=== PATIENT | male | born 1945 | race Caucasian/White ===

== ENCOUNTER → 2018-11-08 | Outpatient (CLI) | payer MEDICARE, OTHER ==
[2016-04-19 11:14] VITALS: BMI 30.6
[~2018-11-08] MED LIST: ASPI-757 PO; CEPH500T7 PO; LEV112 PO; LEVO75TA73 PO; OXYC-865 PO; TAMS0.4C25 PO
--- NOTE | 2018-11-08 10:56 | EKG ---
FACILITY: [facility] - [place] PATIENT NAME: JAVI LA : [id number] MR: [id number] V: [id number] EXAM DATE: ORDERING PHYSICIAN: LAI CASEY TECHNOLOGIST: IAN Test Reason : PRE OP CLEARANCE Blood Pressure : / mmHG Vent. Rate : 069 BPM Atrial Rate : 069 BPM P-R Int : 198 ms QRS Dur : 086 ms QT Int : 398 ms P-R-T Axes : 028 068 034 degrees QTc Int : 426 ms Sinus rhythm Nonspecific ST findings anteriorly Similar to EKG from 06/02/2012 Confirmed by LESTER BENJAMIN ([id number]) on 11/08/2018 2:49:13 PM Referred By: CARMELA Confirmed By:LESTER BENJAMIN
== END ==
LOC: CARD 09:24
PROVIDERS: ATTEND Surgery
DX: Z02.9 Encounter for administrative examinations, unspecified (principal)

== ENCOUNTER 2018-11-10 02:03 | Day surgery (SDC) | payer MEDICARE, OTHER ==
[2016-04-19 11:14] VITALS: Ht 177.8 cm; Wt 99.3 kg
[~2018-11-10] VITALS: Ht 177.8 cm; Wt 99.3 kg
[2018-11-10 09:17] VITALS: BP 144/93
[2018-11-10] MEDS ORDERED: LIDOCAINE 2% IV 100 MG/5ML SYR ONE (09:18)
[2018-11-10] MEDS ORDERED: NORMOSOL R SOLN(*) 1000 ML BAG 1,000 ML IV PRN (09:30)
[2018-11-10] MEDS ORDERED: FAMOTIDINE 20 MG TAB PO ONE (09:30)
[2018-11-10] MEDS ORDERED: LIDOCAINE/SOD BICARB 8.4% SYR ID ONE (09:30)
[2018-11-10] MEDS ORDERED: fentaNYL CITR 100 MCG/2 ML AMP ONE (09:54)
[2018-11-10] MEDS ORDERED: PROPOFOL EMUL(*) 10MG/ML 20 ML 20 ML ONE (09:55)
[2018-11-10] MEDS ORDERED: ROPIVACAINE 0.5% 20 ML VIAL ONE (10:27)
[2018-11-10] MEDS ORDERED: DEXAMETHASONE SOD 4 MG/ML VIAL ONE (10:27)
[2018-11-10] MEDS ORDERED: ONDANSETRON 4 MG/2 ML VIAL ONE (10:28)
[2018-11-10] MEDS ORDERED: MIDAZOLAM 2 MG/2 ML VIAL IVP PRN (10:30)
[2018-11-10 12:07] VITALS: BP 132/80
[2018-11-10] MEDS ORDERED: DOCU100C56 PO (12:13)
[2018-11-10] MEDS ORDERED: TRAM-420 PO (12:13)
--- NOTE | 2018-11-10 12:15 | Short(Outpt) Discharge Summary ---
Discharge Summary Reason for Hosp/Final Diag: (1) Multiple lipomas Status: Chronic Hospital Course & Plan: 3 lipomas removed from upper abdomen without problems. Departure Discharge to: Home, Self Care Discharge Instructions Home Meds Active Scripts Docusate Sodium (DOC-Q-LACE) 100 Mg Capsule, 1 CAP PO BID, #30 CAPSULE 0 Refills Prov:LAI CASEY MD 11/10/18 Tramadol Hcl (TRAMADOL HCL) 50 Mg Tablet, 1 TAB PO Q4H PRN for PAIN, #10 TAB 0 Refills Prov:LAI CASEY MD 11/10/18 Reported Medications Levothyroxine Sodium (LEVOTHYROXINE SODIUM) 75 Mcg Tablet, 1 TAB PO QDAY, TAB Pt takes 75 mcg 5 days/week and 100 mcg 2 days/week 12/10/17 Tamsulosin Hcl (FLOMAX) 0.4 Mg Cap.er.24h, 1 TAB PO DAILY, CAP 04/18/16 Aspirin (ASPIRIN) 325 Mg Tablet, 1 TAB PO DAILY, TAB 04/18/16 Follow up Referrals: General Surgery - 11/30/18 @ Surgery, General with LAI CASEY MD You have a follow up appointment scheduled with Dr. Casey on 11/30/18, at 2:00pm. Diet: Regular Activity: As Tolerated Special Instructions: You may remove the white surgical dressings on 11/12/18, then you can shower. After showering, leave the incisions open to air but leave the steristrips in place until they fall off on their own. Do not immerse the incisions for 2 weeks. LAI CASEY MD November 10, 2018 12:15
--- NOTE | 2018-11-10 12:20 | Post Operative Progress Note ---
Post Operative Progress Note Date: November 10, 2018 Time: 12:16 Surgeon: Owen Dictation number: [id number] Anesthesia: LMA by Dr. Leon Pre-Op Diagnosis: Subcutaneous masses x3, upper abdomen Post-Op Diagnosis: ANISA Findings: C/W benign lipomas Procedure(s): Excision of subcutaneous masses x3 from upper abdomen Specimen Removed:(May be N/A): 1) LUQ subcutaneous mass 2) Upper midline subcutaneous mass 3) RUQ subcutaneous mass Complications: None Fluids: See anesthesia record Estimated Blood Loss: Minimal Date OP Note Dictated: November 10, 2018 Time OP Note Dictated: 12:17 LAI CASEY MD November 10, 2018 12:20
[2018-11-10 12:30] VITALS: BP 134/80
[2018-11-10 12:51] VITALS: BP 126/83
[2018-11-10 12:53] VITALS: BP 130/90
--- NOTE | 2018-11-10 13:02 | OPERATIVE REPORT 1 ---
EVENT DATE: November 10, 2018 SURGEON: Terrell Weaver MD ANESTHESIOLOGIST: Akash Leon MD ANESTHESIA: LMA. PREOPERATIVE DIAGNOSIS Multiple lipomas. POSTOPERATIVE DIAGNOSIS Multiple lipomas. PROCEDURE PERFORMED Excision of three subcutaneous masses from upper abdomen. COMPLICATIONS None. CONDITION Stable. ESTIMATED BLOOD LOSS Minimal. FINDINGS These three masses were all consistent with benign lipomas. SPECIMENS 1. Left upper quadrant subcutaneous mass. 2. Upper midline subcutaneous mass. 3. Right upper quadrant subcutaneous mass. INDICATIONS This is a 73-year old gentleman who presented to my office actually last year with multiple subcutaneous masses over his arms and trunk and there were three in particular that he was considering having removed. I discussed observation versus excision and at that time he elected to observe them. He noticed that since then they have gotten bigger and are causing some discomfort and he was asking to have the three upper abdominal masses removed. DESCRIPTION OF PROCEDURE Patient was brought to the operating room and placed supine on the operating table. LMA anesthesia was administered and his abdomen was prepped and draped in sterile fashion. Time-out was completed. I had previously marked the skin over the masses so then I made skin kaminski over the lipomas and anesthetized the skin with 0.05% ropivacaine plain and made transverse incisions over each of the lipomas, dissecting to the dermis and subcutaneous fat and then entered the pocket where the lipomas reside and did a combination of electrocautery and blunt dissection with my finger to free up the lipomas and were able to remove all three of them intact and in one piece. The left upper quadrant lipoma measured approximately 5 cm x 4 cm x 4 cm. The upper midline lipoma was the largest and was approximately 6 cm x 5 cm x 4 cm and the right upper quadrant lipoma was approximately 4 cm x 4 cm x 4 cm. Each of the wounds was irrigated and dried and made hemostatic with electrocautery and the subcutaneous pockets were closed with 3-0 Vicryl sutures and the skin was closed with 3-0 Vicryl interrupted deep dermal sutures and 4-0 Monocryl running subcuticular suture. Skin was cleaned and dried and Steri-Strips applied followed by sterile surgical dressings. The patient was awakened and LMA removed. He was transferred to the recovery room in stable condition, having tolerated the procedure without any problems. TIO
--- NOTE | 2018-11-10 13:18 | NUR ---
1235 SBAR FROM Stacie BALLARD RN, TURNED DOWN TO ROOM AIR, PAIN DECREASING TO 06/30 1240 PT TOLERATING APPLE SAUCE 1251 ROOM AIR TRIAL SUCCESSFUL, ORTHOSTATICS DONE, STABLE, PT DENIES DIZZINESS, REASSESSED, COARSE, SEE ASSESSMENT FOR RESP. FINDINGS. USED RESTROOM, VOIDED WITHOUT DIFFICULTY, ALLOWED TO DRESS 1300 IV OUT AND D/C INSTRUCTIONS COVERED WITH PT AND . NO QUESTIONS AT THIS TIME. 1305 OUT TO CAR ON FOOT, SELF TRANSFERRED TO CAR WITHOUT DIFFICULTY, ALL BELONGING WITH PT.
--- NOTE | 2018-11-10 13:22 | NUR ---
ADDITION: SEROSANGUINEOUS DRAINAGE TO MEDIAL ASPECT OF LEFT DRESSING NOW PRESENT. SPOT OF SANGUINOUS DRAINAGE TO CENTER OF R DRESSING HAS NOT INCREASED.
== END 2018-11-10 12:07 | disposition home or self-care (01) ==
LOC: OR 02:03
PROVIDERS: ATTEND Surgery
DX: D17.1 Benign lipomatous neoplasm of skin and subcutaneous tissue of trunk (principal)
CPT/HCPCS: 22903; 88304; A9270; J1100; J2001; J2405; J2704; J2795; J3010